=== PATIENT | male | born 1965 | race Caucasian/White ===

== ENCOUNTER 2022-05-13 17:19 | Emergency (ER) | payer BC ==
[~2022-05-13] VITALS: Ht 177.8 cm; Wt 86.2 kg
--- NOTE | 2022-05-13 17:39 | NUR ---
R severed fingertip Index and Thumb w/ a table saw.
[2022-05-13] MEDS ORDERED: MORPHINE SULFATE INJ 2 MG/ML DISP.SYRIN IM ONE (18:00)
[2022-05-13] MEDS ORDERED: ONDANSETRON HCL/PF 4 MG/2 ML VIAL IV ONE (18:00)
[2022-05-13] MEDS ORDERED: TDAP [DIPH/PERTUSSIS/TET] 0.5 ML VIAL IM ONE ×2 (18:00→18:25)
[2022-05-13] MEDS ORDERED: ONDANSETRON HCL/PF 4 MG/2 ML VIAL ONE (18:25)
[2022-05-13] MEDS ORDERED: MORPHINE SULFATE INJ 2 MG/ML DISP.SYRIN ONE (18:25)
[2022-05-13] MEDS ORDERED: CEFAZOLIN 1 GM VIAL IM ONE (18:30)
[2022-05-13] MEDS ORDERED: CEFAZOLIN 1 GM in IV D5W 50 ML IV ONE (19:00)
[2022-05-13] MEDS ORDERED: MORPHINE SULFATE INJ 2 MG/ML DISP.SYRIN IV ONE (19:00)
[2022-05-13] MEDS ORDERED: IBUP-1957 PO (19:31)
[2022-05-13] MEDS ORDERED: HYDR-4303 PO (19:31)
[2022-05-13] MEDS ORDERED: SULF1TAB48 PO (19:31)
--- NOTE | 2022-05-13 19:40 | NUR ---
Patient discharged to home in stable condition. RX Written and verbal after care instructions given. Patient verbalizes understanding of instruction. PT ambulatory with a steady gait
[2022-05-13 19:46] VITALS: BP 124/89
== END 2022-05-13 19:46 | disposition home or self-care (01) ==
LOC: ER 17:29
DX: Z89.011 Acquired absence of right thumb (principal); Z89.021 Acquired absence of right finger(s); Z88.8 Allergy status to other drugs, medicaments and biological substances; Z79.899 Other long term (current) drug therapy
CPT/HCPCS: 99284; 96365; 96375; 90471; 90715; 73130; J0690; J2405; J7060; J2270